=== PATIENT | male | born 1975 | race Caucasian/White ===

== ENCOUNTER 2021-03-31 19:33 | Emergency (ER) | payer MEDICAID ==
[~2021-03-31] VITALS: Ht 172.7 cm; Wt 79.0 kg
[2021-03-31] MEDS ORDERED: TETANUS, DIPHTHERIA, PERTUSSIS VAC/PF 0.5ML (>7YR OLD) IM ONE (21:00)
[2021-03-31] MEDS ORDERED: RABIES VAC,PF CHICK-EMB CELL 2.5 UNITS/ML IM ONE (21:00)
[2021-03-31] MEDS ORDERED: IBUP-2029 MT (22:00)
[2021-03-31] MEDS ORDERED: AMOXICILLIN/POTASSIUM CLAVULANATE 875/125MG TAB PO ONE (22:00)
[2021-03-31] MEDS ORDERED: AMOX-424 MT (22:00)
[2021-03-31 23:17] VITALS: BP 155/103
== END 2021-03-31 23:20 | disposition home or self-care (01) ==
LOC: ER 19:33
DX: S01.451A Open bite of right cheek and temporomandibular area, initial encounter (principal); W54.0XXA Bitten by dog, initial encounter; Z20.3 Contact with and (suspected) exposure to rabies; Z23 Encounter for immunization; Y93.89 Activity, other specified; Y92.89 Other specified places as the place of occurrence of the external cause
CPT/HCPCS: 12013; 90471; 90675; 90715; 99283; A4217; Z7610